=== PATIENT | female | born 1965 | race Two or more races ===

== ENCOUNTER 2024-02-20 23:07 | Emergency (ER) | payer MEDICAID ==
[~2024-02-20] VITALS: Ht 162.6 cm; Wt 84.0 kg
[2024-02-20 23:30] LABS: Basophils # (auto) 0.1 10 ^3/uL (0-0.2); Basophils % (auto) 0.9 % (0.0-2.0); Eosinophils # (auto) 0.5 10 ^3/uL (0-0.8); Eosinophils % (auto) 6.6 % (0.0-7.0); Hematocrit 45.4 % (36.0-46.0); Hemoglobin 15.7 g/dL (12.2-16.2); Lymphocytes # (auto) 2.5 10 ^3/uL (0.4-5.4); Lymphocytes % (auto) 31.3 % (10.0-50.0); Mean Corpuscular Hemoglobin 29.8 pg (28.0-32.0); Mean Corpuscular Hgb Conc. 34.5 g/dL (32.0-36.0); Mean Corpuscular Volume 86.4 fL (80.0-100.0); Monocytes # (auto) 0.8 10 ^3/uL (0-1.3); Monocytes % (auto) 9.7 % (0.0-12.0); Neutrophils # (auto) 4.2 10 ^3/uL (1.6-8.6); Neutrophils % (auto) 51.5 % (37.0-80.0); Nucleated Red Blood Cells % 0.2 %; Red Blood Cells 5.25 10^6/uL (4.0-5.20); White Blood Cell 8.1 10^3/uL (4.4-10.8)
[2024-02-20 23:45] LABS: Alanine Aminotransferase 55 U/L (7-40); Albumin 4.6 g/dL (3.2-4.8); Alkaline Phosphatase 97 U/L (46-116); Anion Gap 6 (5-15); Aspartate Aminotransferase 32 U/L (13-40); BUN/Creatinine Ratio 9.4 (10.0-20.0); Blood Urea Nitrogen 6 mg/dL (9-23); Calcium 9.9 mg/dL (8.7-10.4); Carbon Dioxide 25 mmol/L (20-30); Chloride 105 mmol/L (98-107); Glucose 111 mg/dL (74-106); INR 1.61 (0.9-1.15); Partial Thromboplastin Time 38.3 SEC (24.5-34.5); Potassium 3.6 mmol/L (3.5-5.1); Prothrombin Time 16.5 sec (9.3-11.8); Sodium 136 mmol/L (136-145)
[2024-02-20 23:46] LABS: Bilirubin, Total 1.5 mg/dL (0.2-1.0); Total Protein 7.7 g/dL (5.7-8.2)
[2024-02-21 05:40] VITALS: PULSE 70; RESP 18; O2SAT 98
[2024-02-21 05:55] VITALS: BP 136/72; PULSE 70; RESP 18; TEMP 98.4; O2SAT 98
== END 2024-02-21 05:42 | disposition home or self-care (01) ==
LOC: ER 23:07
DX: I10 Essential (primary) hypertension (principal); R07.89 Other chest pain
CPT/HCPCS: 36415; 71045; 80053; 83735; 83880; 84484; 85025; 85610; 85730; 93005

== ENCOUNTER 2025-03-16 17:43 | Emergency (ER) | payer MEDICAID ==
[~2025-03-16] VITALS: Ht 160 cm; Wt 93.4 kg
[2025-03-16 18:15] VITALS: BP 114/91; PULSE 85; RESP 16; TEMP 98; O2SAT 96
--- NOTE | 2025-03-16 18:33 | ED.PDOC ---
History of Present Illness HPI Comments 59 y/o F presents with c/c left lower leg swelling, with associated pressure- like sensation. Patient reports on 2x day history of symptoms following atraumatic, unprovoked, and gradual onset. No recent travel or injuries endorsed. Significant history of LLE DVT's - on Xarelto for preventative measure. She states on changing doses of her Xarelto from 20mg to 10mg in the past 6 months. Denial of any chest pain, shortness of breath, leg pain, numbness, or tingling, or further associated symptoms. Chief Complaint: Lower Extremity Time Seen by MD: 18:15 Primary Care Provider: CARLOS Reviewed Notes: Nurses Notes, Medications, Allergies Allergies: Coded Allergies: NO KNOWN ALLERGIES (Unverified , 02/04/15) Information Source: Patient Mode of Arrival: Ambulatory Severity: Moderate Timing: Days Duration: Since onset Prehospital treatment: None Past Medical History PAST MEDICAL HISTORY: Asthma Past Medical History (Other): LLE DVT gestational HTN Surgical History: Denies all surgeries CATALOG LIBRARIAN History: No Pertinent CATALOG LIBRARIAN History Family History Family History: Unknown Social History Smoker: Non-Smoker Alcohol: Denies ETOH Use Drugs: Denies Drug Use Lives In: Home All Other Systems: Reviewed and Negative (Comprehensive systems review obtained and negative except for what is stated in the HPI.) Physical Exam General Appearance: No Apparent Distress, Obese HEENT: Normal ENT Inspection, Pharynx Normal, TMs Normal Neck: Full Range of Motion, Non-Tender, Normal, Normal Inspection Respiratory: Chest Non-Tender, Lungs Clear, No Accessory Muscle Use, No Respiratory Distress, Normal Breath Sounds Cardiovascular: No Edema, No JVD, No Murmur, No Gallop, Normal Peripheral Pulses, Regular Rate/Rhythm Breast Exam: Deferred Gastrointestinal: No Organomegaly, Non Tender, No Pulsatile Mass, Normal Bowel Sounds, Soft Genitalia: Deferred Pelvic: Deferred Rectal: Deferred Extremities: Leg edema (mild tenderness to posterior calf and knee on LLE), No calf tenderness, Normal capillary refill, Normal range of motion, Non-tender, No pedal edema, Swelling (mild tenderness to posterior calf and knee on LLE) Musculoskeletal : Apperance: Normal Neurologic: Alert, rn lab II-XII nml as Tested, No Motor Deficits, Normal Affect, Normal Mood, No Sensory Deficits Cerebellar Function: Normal Reflexes: Normal Skin: Dry, Normal Color, Warm Lymphatic: No Adenopathy Was a procedure done? Was a procedure done?: No Differential Dx Considerations may include: DVT, cellulitis, dermatitis, viral syndrome, among others X-Ray, Labs, Meds, VS Vital Signs Date Time Temp Pulse Resp B/P (MAP) Pulse Ox O2 Delivery O2 Flow Rate FiO2 03/16/25 18:15 98.0 85 16 114/91 (99) 96 98.0 Time of 1ST Reevaluation: 18:45 Reevaluation 1ST: Unchanged Patient Education/Counseling: Diagnosis, Treatment, Need For Follow Up Family Education/Counseling: No Family Present SEPSIS Sepsis Screen Date sepsis recognized/suspect: Mar 16, 2025 Time Sepsis recognized/suspect: 1801 Recent Procedure: No On Antibiotic Therapy: No Respiratory Rate >20: No Heart Rate >90: No Temp<36 C (96.8 F) or >38.3 C: No SBP <90 or MAP <65 mmHG: No New Acute Mental Status Change: No Is the patient on CPAP, BIPAP,: No Physician Orders Lt Lower Dvt (03/16/25 18:11) Vital Signs Date Time Temp Pulse Resp B/P (MAP) Pulse Ox O2 Delivery O2 Flow Rate FiO2 03/16/25 18:15 98.0 85 16 114/91 (99) 96 98.0 Departure 1 Departure Time of Disposition: 19:26 Impression: Primary Impression: Left leg pain Disposition: 01 HOME / SELF CARE / HOMELESS Condition: Stable Discharged With: Self Critical Care Note Critical Care Time?: No Stability Stability form required: No Heart Score Heart Score: Heart Score Response (Comments) Value History N/A 0 EKG N/A 0 Age N/A 0 Risk Factors N/A 0 Troponin N/A 0 Total 0 I personally scribed for SUSAN FERNANDEZ MD ([email or web address]) on 03/16/25 at 18:33. Electronically submitted by Yonathan Segovia ([email or web address]). SUSAN FERNANDEZ MD Mar 16, 2025 18:33
--- NOTE | 2025-03-16 18:36 | DVH ---
CLINICAL HISTORY: Left leg pain and swelling, h/o prior DVT TECHNIQUE: Color and duplex doppler imaging of the left lower extremity veins was performed. Vessel c ompression if possible was also performed. WID: COMPARISON: None FINDINGS: Left common femoral vein: Normal compressibility and flow. Left femoral vein: Normal compressibility and flow. Left popliteal vein: Normal compressibility and flow. Proximal calf veins are normally compressible. IMPRESSION: NO SONOGRAPHIC EVIDENCE FOR DEEP VENOUS THROMBOSIS IN THE LEFT LOWER EXTREMITY VEINS.
== END 2025-03-16 18:57 | disposition home or self-care (01) ==
LOC: ER 17:43
DX: M79.662 Pain in left lower leg (principal); I10 Essential (primary) hypertension; J45.909 Unspecified asthma, uncomplicated; Z86.718 Personal history of other venous thrombosis and embolism; Z98.890 Other specified postprocedural states
CPT/HCPCS: 93971